=== PATIENT | male | born 1940 | race Caucasian/White ===

== ENCOUNTER 2022-02-14 08:59 | Emergency (ER) | payer MEDICARE, SELFPAY ==
[2022-02-14 09:28] VITALS: BP 117/73; PULSE 67; RESP 16; TEMP 36.9; O2SAT 96; BMI 26.6
--- NOTE | 2022-02-14 09:34 | XR_ITS ---
FINAL REPORT CLINICAL HISTORY: cough congestion age FINDINGS: Two views of the chest were obtained. The heart size and pulmonary vascularity are within normal limits. The mediastinum is normal. There are bibasilar opacities that could represent atelectasis or scarring. There is no pneumothorax. There are changes of kyphoplasty in multiple lower thoracic vertebrae. IMPRESSION: Bibasilar atelectasis or scarring. Reviewed, Interpreted and Dictated by Lauro Huynh III, MD Transcribed by Micah Lara Authenticated by Lauro Huynh III, MD on 02/14/2022 11:24:25 AM [facility]
[2022-02-14 10:01] LABS: UTC Influenza A Antigen Negative (Negative); UTC Influenza B Antigen Negative (Negative)
[2022-02-14 10:54] VITALS: BP 119/63; PULSE 59; RESP 18; TEMP 36.8; O2SAT 95; BMI 26.6
[2022-02-14 11:00] VITALS: BP 118/60; PULSE 54; O2SAT 94
--- NOTE | 2022-02-14 11:12 | PC.NURSE ---
ED MD at
--- NOTE | 2022-02-14 11:18 | HMH.EDGENADL ---
ED Disposition Clinical Impression: Bronchitis Conjunctivitis Qualifiers: Conjunctivitis type: acute Acute conjunctivitis type: bacterial Laterality: right Qualified Code(s): H10.31 - Unspecified acute conjunctivitis, right eye Disposition: Home, Self-Care Condition on Discharge: Good Instructions: DI for Conjunctivitis, DI for Acute Bronchitis Additional Instructions: follow up PCP, return here for worse or any concerns Prescriptions: Gentamicin Sulfate [Gentak opth ointment 3.5gm] 0.5 inch OP Q8 7 Days #3.5 gm Transmission Status: Received by [id number] Cefdinir [Omnicef 300mg Capsule] 300 mg PO BID #20 cap Transmission Status: Received by [id number] Referrals: Provider,Referral, [Primary Care Provider] - - Critical Care Critical Care Time: No Attestation: On 02/14/22, the high probability of a clinically significant, sudden or life threatening deterioration of the following system(s) required my full and direct attention, intervention and personal management. The time I documented below is in addition to time spent performing reported procedures but includes the following listed in this critical care notation. Medical Decision Making - Medical Records Medical records reviewed: Yes: I reviewed the patient's medical records. - Zachary Inquiry Pt receiving controlled substance: No Vital Signs: 02/14/22 09:28 02/14/22 10:54 02/14/22 11:00 Temperature 98.4 F 98.2 F Temperature Source Oral Oral Pulse Rate 54 L Pulse Rate [Left] 67 59 L Respiratory Rate 16 18 Blood Pressure 118/60 Blood Pressure [Right Arm] 117/73 119/63 Blood Pressure Mean [Right Arm] 87 81 Blood Pressure Source Automatic Cuff Blood Pressure Source [Right Arm] Automatic Cuff Blood Pressure Position Sitting Blood Pressure Position [Right Arm] Sitting 02 Sat by Pulse Oximetry 96 95 94 L Oxygen Delivery Method Room Air Room Air 02/14/22 11:35 Temperature 98.3 F Temperature Source Pulse Rate 54 L Pulse Rate [Left] Respiratory Rate 16 Blood Pressure 118/60 Blood Pressure [Right Arm] Blood Pressure Mean [Right Arm] Blood Pressure Source Blood Pressure Source [Right Arm] Blood Pressure Position Blood Pressure Position [Right Arm] 02 Sat by Pulse Oximetry Oxygen Delivery Method - Lab Data Lab Results 02/14/22 09:34: Influenza Type A Ag Negative, Influenza Type B Ag Negative Medical Decision Narrative: cxr by me nad General Adult HPI - General Chief complaint: Upper Respiratory Infection Stated complaint: cough, congestion, redness in rt eye Time Seen by Provider: 02/14/22 10:00 Mode of Arrival: Wheelchair Limitations: No Limitations Description of Symptoms (Recalled from ER Triage Doc. by RN): Pt reports loose cough x2 days, daughter states she feels like the cough is more in his chest now than when it began. States non-productive cough. Pt also reports R eye redness/drainage x2 days. Denies fever. Reports generalized weakness. - History of Present Illness HPI narrative: uri symptoms, prod cough, rt eye drainage/redness, few days denies fever, estefania po well Onset (ago): day(s) Radiation: non-radiation Consistency: constant Exacerbating factors: none Associated symptoms: cough - Related Data Home Medications Medication Instructions Recorded Confirmed Cholecalciferol (Vitamin D3) 5,000 unit PO DAILY 02/14/22 02/14/22 [Vitamin D3 1,000 Unit Cap] Famotidine [Acid Controller] 20 mg PO DAILY 02/14/22 02/14/22 Potassium Chloride 20 meq PO DAILY 02/14/22 02/14/22 Simvastatin 40 mg PO DAILY 02/14/22 02/14/22 Previous Rx's Medication Instructions Recorded Cefdinir [Omnicef 300mg Capsule] 300 mg PO BID #20 cap 02/14/22 Gentamicin Sulfate [Gentak opth 0.5 inch OP Q8 7 Days #3.5 gm 02/14/22 ointment 3.5gm] Allergies Allergy/AdvReac Type Severity Reaction Status Date / Time No Known Drug Allergies Allergy Verified 02/14/22 09:33
[2022-02-14 11:35] VITALS: BP 118/60; PULSE 54; RESP 16; TEMP 36.8; O2SAT 94
== END 2022-02-14 11:36 | disposition home or self-care (01) ==
LOC: UTC 09:35 → ER 10:53
PROVIDERS: Nurse Practitioner Family; Emergency Provider Emergency Medicine
DX: H10.31 Unspecified acute conjunctivitis, right eye (principal); J06.9 Acute upper respiratory infection, unspecified; R53.1 Weakness
CPT/HCPCS: 71046; 87804; 99284

== ENCOUNTER 2023-02-04 10:44 | Emergency (ER) | payer MEDICARE, SELFPAY ==
[2023-02-04] VITALS (11 sets, daily range): BP systolic 93–124; BP diastolic 61–79; PULSE 65–93; RESP 18–23; TEMP 36.6; O2SAT 92–95; BMI 25.0
--- NOTE | 2023-02-04 10:53 | PC.NURSE ---
DR MCCLOUD AT BEDSIDE
--- NOTE | 2023-02-04 10:58 | XR_ITS ---
PROCEDURE INFORMATION: Exam: XR Chest Exam date and time: 02/04/2023 11:30 AM Age: 82 years old Clinical indication: Dyspnea and fever TECHNIQUE: Imaging protocol: Radiologic exam of the chest. Views: 1 view. COMPARISON: CR XR CHEST 2V 02/14/2022 10:14 AM FINDINGS: Lungs: Patchy bibasilar infiltrates with indistinctness of the hemidiaphragms. Pleural spaces: Blunting of both costophrenic angles. Heart/Mediastinum: Unremarkable. No cardiomegaly. Bones/joints: Unremarkable. IMPRESSION: Bibasilar regions of consolidation. Findings may reflect combination of atelectasis and infiltrate. Superimposed small pleural effusions.
--- NOTE | 2023-02-04 11:00 | HMH.EDFEV ---
Discharge Plan Disposition Patient Disposition: Home, Self-Care Prescriptions Prescriptions: New levofloxacin 500 mg tablet 500 mg PO DAILY 7 Days Qty: 7 0RF azithromycin 250 mg tablet 250 mg PO DAILY 4 Days Qty: 4 0RF Rx Instructions: start on day 2 of therapy No Action simvastatin 40 MG tablet 40 mg PO DAILY famotidine 20 MG tablet 20 mg PO DAILY cholecalciferol (vitamin D3) 1,000 UNIT capsule 5,000 unit PO DAILY potassium chloride 20 MEQ tablet extended release 20 meq PO DAILY gentamicin 3.5 GM ointment 0.5 inch OP Q8 7 Days Qty: 3.5 0RF cefdinir 300 MG capsule 300 mg PO BID Qty: 20 0RF Referrals Follow up/Referrals: Jensen Watts MD [Primary Care Provider] - See instructions Activity Restrictions/Add. Instructions Additional Instructions/Restrictions: Take all medications as prescribed. 2 antibiotics have been sent to the [facility] pharmacy in [place]. You should start these antibiotics tomorrow. Your work-up today in the emergency department showed pneumonia on both sides of your lungs. The pneumonia is low in the chest. Please return to the emergency department immediately if your symptoms worsen in any way. Follow-up with your primary care doctor in about 3 to 4 days if there is no improvement. Clinical Impressions Clinical Impression: Pneumonia Qualifiers: Pneumonia type: due to unspecified organism Laterality: bilateral Lung location: lower lobe of lung Qualified Code(s): J18.9 - Pneumonia, unspecified organism Instructions Patient Instructions: Pneumonia-Adult Discharge ED Provider: Romain Cain Fever HPI General Chief Complaint: Fever Stated Complaint: abd pain, left side, fever, constipated Time Seen by Provider: 02/04/23 10:52 Mode of Arrival: EMS Source of Information: Relative and EMS Limitations: Altered Mental Status (Dementia of the patient) Description of Symptoms (Recalled from ER Triage Doc. by RN): Presents from [place] via EMS d/t non-productive cough x 1 week, fever (M. Temp 102) -> given Tylenol 500mg @ 09:30, and increased fatigue that started today. Initial O2 sat 84%, 3L placed, increased to 92%. History of Present Illness HPI Narrative: The patient [facility] the emergency department [facility]. He was noted to be febrile and hypoxic at the [facility]. He was given Tylenol prior to arrival. The patient is usually not on oxygen. He has a history of diverticulitis. He also has a history of severe dementia. Of note, his recently and was buried yesterday. Related Data Home Medications Medication Instructions Recorded Confirmed cholecalciferol (vitamin D3) 25 5,000 unit PO DAILY supplement 02/14/22 02/14/22 mcg (1,000 unit) capsule famotidine 20 mg tablet 20 mg PO DAILY acid 02/14/22 02/14/22 potassium chloride 20 mEq 20 meq PO DAILY Supplement 02/14/22 02/14/22 tablet,extended release simvastatin 40 mg tablet 40 mg PO DAILY Cholesterol 02/14/22 02/14/22 Previous Rx's Medication Instructions Recorded cefdinir 300 mg capsule 300 mg PO BID #20 caps 02/14/22 gentamicin 0.3 % (3 mg/gram) eye 0.5 inch OP Q8 7 days ##3.5 02/14/22 ointment azithromycin 250 mg tablet 250 mg PO DAILY 4 days #4 tabs 02/04/23 levofloxacin 500 mg tablet 500 mg PO DAILY 7 days #7 tabs 02/04/23 Allergies Allergy/AdvReac Type Severity Reaction Status Date / Time No Known Drug Allergies Allergy Verified 02/14/22 09:33 [facility] Disclaimer: The information contained in this section may have been updated after the patient was seen, as this information can be updated by other users. Social History Smoking Status: Smoker, status unknown alcohol intake: never current occupational status: retired Travel in the last 8 weeks: None ROS Obtained: Yes unobtainable due to mental condition Physical Exam General General appearance: alert Comment: The patient is on 2 L of jenny
[2023-02-04 11:06] LABS: Basophils % 0.2 % (0.1-2.0); Chloride 105 mmol/L (98-107); Eosinophils % 0.3 % (0.1-12.0); Hematocrit 38.1 % (42.0-52.0); Hemoglobin 12.4 g/dL (14.1-18.0); Lymphocytes # 0.8 K/mm3 (0.7-4.5); Lymphocytes % 10.6 % (10-50); Mean Corpuscular HGB Conc 32.6 g/dL (31.8-35.4); Mean Corpuscular Hemoglobin 30.3 pg (27.0-31.2); Mean Corpuscular Volume 93.1 fl (80-94); Mean Platelet Volume 9.2 fl (7.4-10.4); Monocytes # 0.6 K/mm3 (0.1-1.0); Monocytes % 7.6 % (1.7-9.3); Neutrophils # 6.2 K/mm3 (1.8-7.8); Neutrophils % 81.3 % (37.0-80.0); Platelet Count 147 K/mm3 (142-424); Red Blood Count 4.09 M/mm3 (4.60-6.20); White Blood Count 7.6 K/mm3 (4.8-10.8)
[2023-02-04 11:07] LABS: Potassium 4.2 mmoL/L (3.5-5.1); Sodium 140 mmol/L (136-145)
[2023-02-04 11:09] LABS: Alanine Aminotransferase 15 U/L (12-78); Alkaline Phosphatase 70 U/L (38-126); Aspartate Amino Transferase 28 U/L (17-59); Bilirubin,Total 1.4 mg/dl (0.2-1.3); Blood Urea Nitrogen 15 mg/dl (9-20); Creatinine Clearance Estimated 52 mL/min (50-200); Estimated Glomerular Filt Rate 64 ml/min (>60); GFR (African American) 77 ML/MIN (>60)
[2023-02-04 11:10] LABS: Albumin Level 3.5 g/dl (3.5-5.0); Albumin/Globulin Ratio 1.3 (1.1-1.8); Anion Gap 10.2 mEq/L (5-15); Calcium 8.5 mg/dl (8.4-10.2); Carbon Dioxide 29 mmol/L (22.0-30.0); Globulin 2.8 g/dL (1.3-3.2); Glucose 142 mg/dl (74-100); Total Protein,Serum 6.3 g/dl (6.3-8.2)
[2023-02-04 11:12] LABS: Lactic Acid 1.2 mmol/L (0.7-2.1)
--- NOTE | 2023-02-04 11:13 | ECG_ITS ---
APPROVED REPORT Exam: Resting ECG HR:78 bpm ECG Measurements Heart Rate 78 AXES DE 162 P 18 QRSd 106 QRS -3 QT 384 T 19 QTc 417 Conclusion SINUS RHYTHM WITH FREQUENT SUPRAVENTRICULAR PREMATURE COMPLEXES MINIMAL ST DEPRESSION [0.025+ mV ST DEPRESSION] ABNORMAL RHYTHM ECG UNCONFIRMED REPORT Electronically signed by : Jensen Watts MD 02/04/2023 12:51:16
--- NOTE | 2023-02-04 11:13 | PC.NURSE ---
Family at bedside and updated on plan of care. Pt resting comfortably.
[2023-02-04 11:19] LABS: NT Pro Brain Natriuretic Pep. 483 pg/mL (0-450)
--- NOTE | 2023-02-04 12:39 | PC.NURSE ---
Pt resting at this time. Family remains at bedside.
--- NOTE | 2023-02-04 13:24 | PC.NURSE ---
Rounded on patient and family; call light within reach
--- NOTE | 2023-02-04 14:15 | PC.NURSE ---
pt family came out and asked if the doctor would come speak with them about a few questions they have. MD notified
--- NOTE | 2023-02-04 14:19 | PC.NURSE ---
notified [facility] transport back to [facility]
--- NOTE | 2023-02-04 14:23 | PC.NURSE ---
MD at bedside to discuss further questions by additional family member
--- NOTE | 2023-02-04 14:24 | PC.NURSE ---
MD at bedside at this time
== END 2023-02-04 15:21 | disposition home or self-care (01) ==
PROVIDERS: Emergency Provider Emergency Medicine; PCP Internal Medicine Adolescent Medicine
DX: J18.9 Pneumonia, unspecified organism (principal); R10.9 Unspecified abdominal pain
CPT/HCPCS: 71045; 80053; 83605; 83880; 85025; 87040; 93005; 96365; 96374; 99285; J0456; J0696